=== PATIENT | female | born 1940 | race Caucasian/White ===

== ENCOUNTER 2016-11-16 16:36 | Inpatient (IN) | payer OTHER ==
[~2016-11-16] VITALS: Ht 152.4 cm; Wt 70.1 kg
[~2016-11-16 16:36] MED LIST: ACEBUTOLOL HCL200 MG PO; BACTRIM,SEPT1 TABLET PO; CYMBALTA60 MG PO; MIDODRINE HCL2.5 MG PO; PLAVIX75 MG PO; TOPAMAX100 MG PO; VITAMIN B122500 MCG PO; XANAX1 MG PO
[2016-11-16 18:52] LABS: EOSINOPHIL (%) 1.2 % (0-5); EOSINOPHIL COUNT 0.1 K/uL (0-0.3); HEMATOCRIT 37.6 % (36.0-46.0); IMMATURE GRANULOCYTE (%) 0.4 % (0.0-0.7); INSTRUMENT ABS NEUTROPHIL CT 2.7 K/uL; LYMPHOCYTE COUNT 1.7 K/uL (1.0-2.8); MCH 32.4 PG (29.0-34.0); MCHC 32.2 G/DL (30.0-36.0); MCV 100.5 FL (83-99); MEAN PLAT.VOLUME 9.9 uM^3 (9.5-12.4); MONOCYTE (%) 8.2 % (3-12); MONOCYTE COUNT 0.4 K/uL (0-0.8); NEUTROPHIL (%) 54.8 % (45-76); NEUTROPHIL COUNT 2.7 K/uL (1.8-6.4); PLATELET COUNT 194 K/uL (156-360); RBC DIS.WIDTH-CV 12.6 % (11.8-14.6); RBC DIS.WIDTH-SD 46.5 % (39-53); RED BLOOD COUNT 3.74 M/uL (3.80-5.20); WHITE BLOOD COUNT 4.9 K/uL (4.1-10.2)
[2016-11-16 19:01] LABS: CHLORIDE 111 mEq/L (99-109); POTASSIUM 3.4 mEq/L (3.7-5.4); SODIUM 147 mEq/L (136-147)
[2016-11-16 19:03] LABS: GLUCOSE 106 mg/dL (70-99)
[2016-11-16 19:04] LABS: ANION GAP 9 MEQ/L (2-14)
[2016-11-16 19:05] LABS: TOTAL BILIRUBIN 0.3 mg/dL (0.0-1.0)
[2016-11-16 19:06] LABS: ALKALINE PHOSPHATASE 78 IU/L (3-129); GFR ESTIMATE (CALCULATED) 58 mL/min/
[2016-11-16 19:08] LABS: UREA NITROGEN (BUN) 19 mg/dL (9-23)
[2016-11-16 19:10] LABS: LIPASE 9 U/L (1.0-51.0)
[2016-11-16 19:13] LABS: TROP-I INTERPRETATION NEGATIVE; TROPONIN-I < 0.01 ng/mL (0.0-0.30)
[2016-11-16] MEDS ORDERED: VITAMIN D2000 UNIT PO (23:28)
[2016-11-16] MEDS ORDERED: PROMETHAZINE12.5 M1 PO (23:28)
[2016-11-16] MEDS ORDERED: VITAMIN B122500 MC1 PO (23:28)
[2016-11-17 04:56] VITALS: BP 120/72
[2016-11-17 06:07] LABS: HEMATOCRIT 36.7 % (36.0-46.0); MCH 32.5 PG (29.0-34.0); MCHC 31.9 G/DL (30.0-36.0); MCV 101.9 FL (83-99); MEAN PLAT.VOLUME 10.7 uM^3 (9.5-12.4); PLATELET COUNT 178 K/uL (156-360); RBC DIS.WIDTH-CV 12.6 % (11.8-14.6); RBC DIS.WIDTH-SD 47.7 % (39-53); WHITE BLOOD COUNT 4.6 K/uL (4.1-10.2)
[2016-11-17 06:21] LABS: ALKALINE PHOSPHATASE 74 IU/L (3-129); ANION GAP 9 MEQ/L (2-14); CHLORIDE 109 MEQ/L (99-109); GFR ESTIMATE (CALCULATED) 58 mL/min/; POTASSIUM 3.8 MEQ/L (3.7-5.4); SAMPLE HEMOLYSIS CHECK 0; SAMPLE ICTERIC CHECK 0; SAMPLE LIPEMIA CHECK 0; SODIUM 144 MEQ/L (136-147); TOTAL BILIRUBIN 0.5 MG/DL (0.0-1.0); UREA NITROGEN (BUN) 16 mg/dL (9-23)
[2016-11-17 06:22] LABS: GLUCOSE 191 mg/dL (70-99)
[2016-11-17 07:57] VITALS: BP 126/65
[2016-11-17 11:35] VITALS: BP 124/67
[2016-11-17 16:27] VITALS: BP 143/67
[2016-11-17 20:32] VITALS: BP 137/64
[2016-11-18 00:50] VITALS: BP 150/88
[2016-11-18 05:26] VITALS: BP 153/71
[2016-11-18 07:59] VITALS: BP 154/73
[2016-11-18 11:44] VITALS: BP 146/71
[2016-11-18] MEDS ORDERED: XANAX1 MG PO (17:24)
[2016-11-18] MEDS ORDERED: SIMVASTATIN10 MG PO (17:35)
== END 2016-11-18 17:53 | disposition home or self-care (01) | DRG 305 ==
LOC: EME 16:36 → 4EAST 23:24 → EDOF 23:24 → 4EAST 11-17 04:14
PROVIDERS: Emergency Medicine; Physician Assistant Medical
DX: I16.0 Hypertensive urgency (principal); K63.89 Other specified diseases of intestine; I12.9 Hypertensive chronic kidney disease with stage 1 through stage 4 chronic kidney disease, or unspecified chronic kidney disease; N18.3 Chronic kidney disease, stage 3 (moderate); F41.9 Anxiety disorder, unspecified; R55 Syncope and collapse; Z90.5 Acquired absence of kidney; Z85.528 Personal history of other malignant neoplasm of kidney; E78.5 Hyperlipidemia, unspecified; I25.10 Atherosclerotic heart disease of native coronary artery without angina pectoris; Z51.11 Encounter for antineoplastic chemotherapy; G43.909 Migraine, unspecified, not intractable, without status migrainosus; I95.1 Orthostatic hypotension
CPT/HCPCS: 70450; 74176; 80053; 83690; 84484; 85025; 85027; 93005; 94799; 99281; 99285; J1200; J1644; J1885; J2765; J2930; J7030; S0028